=== PATIENT | female | born 2000 | race American Indian/Alaskan Native ===

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

== ENCOUNTER 2024-03-04 21:58 | Inpatient (IN) | payer OTHER ==
[~2024-03-04] VITALS: Ht 160 cm; Wt 78.5 kg
[2024-03-04] MEDS ORDERED: MORPHINE SULFATE 10 MG/ML VIAL IM ONE (22:45)
[2024-03-04] MEDS ORDERED: PROMETHAZINE HCL 25 MG TAB PO ONE (22:45)
[2024-03-05] MEDS ORDERED: MAGNESIUM HYDROXIDE/AL HYDROX 30 ML CUP PO PRN (00:45)
[2024-03-05] MEDS ORDERED: ondansetron HCL 4 MG/2 ML VIAL IV PRN ×2 (00:45→10:15)
[2024-03-05] MEDS ORDERED: LACTATED RINGER'S 1,000 ML IV PRN ×2 (00:45→09:15)
[2024-03-05] MEDS ORDERED: CALCIUM CARBONATE 500 MG CHEW PO PRN (00:45)
[2024-03-05 01:07] LABS: AMPHETAMINES, URINE NEGATIVE (NEGATIVE); BARBITURATES, URINE NEGATIVE (NEGATIVE); BENZODIAZEPINE, URINE NEGATIVE (NEGATIVE); BUPRENORPHINE, URINE NEGATIVE (NEGATIVE); CANNABINOID, URINE POSITIVE (NEGATIVE); COCAINE, URINE NEGATIVE (NEGATIVE); ECSTASY, URINE NEGATIVE (NEGATIVE); FENTANYL, URINE NEGATIVE (NEGATIVE); METHADONE, URINE NEGATIVE (NEGATIVE); OPIATES, URINE POSITIVE (NEGATIVE); OXYCODONE, URINE NEGATIVE (NEGATIVE); PHENCYCLIDINE, URINE NEGATIVE (NEGATIVE)
[2024-03-05 01:08] VITALS: BP 132/87
[2024-03-05 01:11] LABS: HEMATOCRIT 36.5 % (35.0-50.0); HEMOGLOBIN 12.4 g/dL (12.0-18.0); MCH 29.6 (27-36); MCV 87.2 fl (81-99); RBC 4.18 M/ul (4.3-5.7); RDW 16.5 (10.5-15.0)
[2024-03-05 01:50] LABS: ABO O; RH POSITIVE
[2024-03-05 01:51] LABS: ANTIBODY SCREEN NEGATIVE
[2024-03-05] MEDS ORDERED: ePHEDrine sulfate 5 MG/ML SYRINGE IV PRN (03:00)
[2024-03-05] MEDS ORDERED: ROPIVACAINE 0.2% 200 ML BAG EPIDURAL SCH (03:00)
[2024-03-05] MEDS ORDERED: LACTATED RINGER'S 2,000 ML IV ONE (03:00)
[2024-03-05] MEDS ORDERED: LACTATED RINGER'S 500 ML IV PRN (03:00)
[2024-03-05] MEDS ORDERED: ePHEDrine KIT FOR FBC IV ONE (03:57)
[2024-03-05] MEDS ORDERED: AMPICILLIN SOD 2 GM in SODIUM CHLORIDE 0.9% 100 ML IV ONE (09:00)
[2024-03-05] MEDS ORDERED: ACETAMINOPHEN 325 MG TAB PO PRN (09:00)
[2024-03-05] MEDS ORDERED: fentaNYL citrate 100 MCG/2 ML VIAL ONE (09:09)
[2024-03-05] MEDS ORDERED: LIDOCAINE 2% W/ EPI 1:200,000 20 ML SDV ONE (09:09)
[2024-03-05] MEDS ORDERED: OXYTOCIN 10 UNITS/ML VIAL ONE (09:11)
[2024-03-05] MEDS ORDERED: ondansetron HCL 4 MG/2 ML VIAL ONE (09:15)
[2024-03-05] MEDS ORDERED: LIDOCAINE 2% VISCOUS 6 ML SYR TOP ONE ×2 (09:15→10:45)
[2024-03-05] MEDS ORDERED: SOD+POT BICARB/CITRIC ACID 2 EA TABLET.EFF PO ONE ×2 (09:15)
[2024-03-05] MEDS ORDERED: PHENYLEPHRINE HCL 10 MG/ML VIAL ONE (09:25)
[2024-03-05] MEDS ORDERED: LACTATED RINGER'S 1,000 ML IV ONE (09:38)
[2024-03-05] MEDS ORDERED: MORPHINE SULFATE 1 MG/ML VIAL ONE (09:51)
[2024-03-05] MEDS ORDERED: Ropivacaine HCl 0.5% 30 ML VIAL ONE (09:51)
[2024-03-05] MEDS ORDERED: DEXAMETHASONE SOD PHOS 4 MG/ML VIAL ONE ×2 (09:51)
[2024-03-05] MEDS ORDERED: SODIUM CHLORIDE 0.9% 20 ML IV ONE (09:51)
[2024-03-05] MEDS ORDERED: CLINDAMYCIN PHOSPHATE/D5W 900 MG/50 ML PIGGYBACK IV SCH ×2 (10:00→14:00)
[2024-03-05] MEDS ORDERED: GENTAMICIN SULFATE 130 MG in DEXTROSE 5% 100 ML IV SCH (10:00)
[2024-03-05] MEDS ORDERED: dexmedeTOMIDine HCl 200 MCG/2 ML VIAL ONE (10:08)
[2024-03-05] MEDS ORDERED: HYDROmorphone HCL 1 MG/ML SYR IV PRN (10:15)
[2024-03-05] MEDS ORDERED: NALOXONE HCL 0.4 MG SYR IV PRN (10:15)
[2024-03-05] MEDS ORDERED: KETOROLAC TROMETHAMINE 30 MG/ML VIAL IV PRN (10:15)
[2024-03-05] MEDS ORDERED: PROCHLORPERAZINE EDISYLATE 10 MG/2 ML VIAL IV PRN (10:15)
[2024-03-05] MEDS ORDERED: diphenhydrAMINE HCL 50 MG/ML VIAL IV PRN (10:15)
[2024-03-05] MEDS ORDERED: LACTATED RINGER'S 1,000 ML IV SCH (10:44)
[2024-03-05] MEDS ORDERED: bisacodyL 10 MG SUPP PR PRN (10:45)
[2024-03-05] MEDS ORDERED: PROMETHAZINE HCL 25 MG TAB PO PRN (10:45)
[2024-03-05] MEDS ORDERED: OXYTOCIN/0.9 % SODIUM CHLORIDE 500 ML IV SCH (10:45)
[2024-03-05] MEDS ORDERED: METOCLOPRAMIDE HCL 10 MG/2 ML SDV IV PRN (10:45)
[2024-03-05] MEDS ORDERED: OXYCODONE HCL 5 MG TAB PO PRN (10:45)
[2024-03-05] MEDS ORDERED: PROMETHAZINE HCL 25 MG SUPP PR PRN (10:45)
[2024-03-05] MEDS ORDERED: HYDROCODONE/ACETA 5/325 TAB PO PRN (10:45)
[2024-03-05] MEDS ORDERED: OXYCODONE/APAP 5/325 TAB PO PRN (10:45)
--- NOTE | 2024-03-05 11:04 | NUR ---
03/05/24 1104 Sheets,Flavia 1033 PT TO ROOM 102 WITH FBC AND AT BEDSIDE WITH BABY. VSS AND PT DENIES CONCERNS. PT DENIES NAUSEA AND PAIN. IV IN LEFT WRIST AND INFUSING LR WITH 20 PIT. PT ABLE TO MOVE HER LOWER LEGS AND EDUCATION GIVEN. 1101 BABY TO CHEST WITH FBC RN. FAMILY AT BEDSIDE.
[2024-03-05 11:07] VITALS: BP 122/71
[2024-03-05] MEDS ORDERED: KETOROLAC TROMETHAMINE 30 MG/ML VIAL IV SCH (14:00)
[2024-03-05] MEDS ORDERED: SIMETHICONE 80 MG CHEW PO SCH (16:00)
[2024-03-05] MEDS ORDERED: SENNOSIDES/DOCUSATE 1 EA TAB PO SCH (21:00)
[2024-03-06] MEDS ORDERED: LACTATED RINGER'S 1,000 ML IV SCH (05:00)
[2024-03-06 06:02] LABS: HEMATOCRIT 31.7 % (35.0-50.0); HEMOGLOBIN 10.7 g/dL (12.0-18.0); MCH 29.5 (27-36); MCHC 33.8 g/dl (30-36); MCV 87.5 fl (81-99); PLATELET COUNT 234 K/uL (140-440); RBC 3.63 M/ul (4.3-5.7); RDW 16.8 (10.5-15.0)
[2024-03-06 06:13] LABS: SMEAR REVIEW BLOOD SEE COMMENTS
[2024-03-06] MEDS ORDERED: GENTAMICIN SULFATE 130 MG in DEXTROSE 5% 100 ML IV SCH (07:00)
[2024-03-06] MEDS ORDERED: PROCHLORPERAZINE EDISYLATE 10 MG/2 ML VIAL IV PRN (10:15)
[2024-03-06] MEDS ORDERED: ondansetron HCL 4 MG/2 ML VIAL IV PRN (10:15)
[2024-03-06] MEDS ORDERED: IBUPROFEN 600 MG TAB PO SCH (14:00)
[2024-03-07] MEDS ORDERED: MAGNESIUM SULFATE 2 GM/50 ML BAG IV ONE (18:30)
== END 2024-03-08 14:10 | disposition home or self-care (01) | DRG 788 ==
LOC: FBCO 21:58 → FBC 03-05 00:29
PROVIDERS: ADMIT Obstetrics & Gynecology; ATTEND Obstetrics & Gynecology
PROC: 10D00Z1 Extraction of Products of Conception, Low, Open Approach (ICD-10-PCS; principal; 2024-03-05 09:30)
DX: O41.1030 Infection of amniotic sac and membranes, unspecified, third trimester, not applicable or unspecified (principal); O76 Abnormality in fetal heart rate and rhythm complicating labor and delivery; Z3A.38 38 weeks gestation of pregnancy; Z37.0 Single live birth; O69.81X0 Labor and delivery complicated by cord around neck, without compression, not applicable or unspecified; O77.0 Labor and delivery complicated by meconium in amniotic fluid; O42.02 Full-term premature rupture of membranes, onset of labor within 24 hours of rupture
CPT/HCPCS: 01961; 36415; 59025; 62273; 76942; 80307; 82803; 85027; 85060; 86850; 86900; 86901; 88307; 96372; A9270; G0463; J0290; J1100; J1580; J1885; J2270; J2274; J2371; J2405; J2590; J2795; J3010; J3490; J7121